=== PATIENT | male | born 1955 | race Caucasian/White ===

== ENCOUNTER 2020-04-30 19:41 | Inpatient (IN) | payer MEDICAID ==
[~2020-04-30] VITALS: Ht 170.2 cm; Wt 90.7 kg
[2020-04-30] MEDS ORDERED: IV NS 0.9% 1,000 ML BAG IV ONE (22:00)
[2020-04-30 22:05] LABS: BASOPHILS % (AUTO) 0.4 % (0.0-2.0); HEMATOCRIT 54 % (39-51); HEMOGLOBIN 17.3 g/dL (13.5-17.5); LYMPHOCYTES # (AUTO) 1.4 /CMM (0.8-4.8); MEAN CORPUSCULAR HGB CONC 32 g/dl (31.0-36.0); MEAN CORPUSCULAR VOLUME 97 fL (80-96); MONOCYTES # (AUTO) 1.1 /CMM (0.1-1.30); MONOCYTES % (AUTO) 9.4 % (2.0-12.0); NEUTROPHILS # (AUTO) 9.3 /CMM (1.8-8.9); NEUTROPHILS % (AUTO) 78.2 % (43.0-81.0); PLATELET COUNT (AUTO) 168 /CMM (150-450); RED BLOOD CELL COUNT(AUTO) 5.56 MIL/uL (4.5-6.0); WHITE BLOOD COUNT (AUTO) 11.8 K/uL (4.3-11.0)
[2020-04-30 23:09] LABS: BILIRUBIN,DIRECT 0.5 mg/dL (0.0-0.2); BILIRUBIN,TOTAL 1.3 mg/dL (0.2-1.0); CREATININE 1.8 mg/dL (0.6-1.3); TOTAL PROTEIN, SERUM 5.8 g/dL (6.4-8.2)
[2020-04-30] MEDS: IV NS 0.9% 1,000 ML BAG IV ONE ×2 (23:10→23:29)
[2020-04-30 23:19] LABS: ALCOHOL, BLOOD < 3 mg/dL (0-0); B-TYPE NATRIURETIC PEPTIDE 10886 PG/ML (0-125)
[2020-04-30 23:20] LABS: ACETAMINOPHEN 0 ug/ml (10-30)
[2020-04-30] MEDS ORDERED: ASPIRIN 325 MG TABLET ONE (23:27)
[2020-04-30] MEDS: ASPIRIN 325 MG TABLET PO SCH (23:29)
[2020-05-01] MEDS ORDERED: FUROSEMIDE 40 MG/4 ML VIAL IV SCH
[2020-05-01] MEDS ORDERED: FUROSEMIDE 40 MG/4 ML VIAL ONE ×3 (00:03→16:59)
[2020-05-01 00:09] LABS: ABG BASE EXCESS -8.9 mmol/L; ABG OXYGEN SATURATION 85.8 % (92.0-98.5); ABG PCO2 27.2 mmHg (35.0-45.0); ABG PH 7.349 (7.350-7.450); ABG PO2 54.9 mmHg (75.0-100.0); AaDO2 62.3 mmHg; COHb 0.7 % (0.5-1.5); MetHb 0.5 % (0.0-1.5); O2Hb 84.8 % (94.0-97.0); SITE, ABG Right Radial; VENT MODE, BG room air
[2020-05-01 00:19] LABS: BILIRUBIN,URINE SMALL (NEGATIVE); COLOR,URINE AMBER (YELLOW); LEUKOCYTE ESTERASE ,URINE Negative (NEGATIVE); NITRITE, URINE Negative (NEGATIVE); PROTEIN,URINE 100 mg/dl (NEGATIVE); UGLUCOSE Negative (NEGATIVE)
[2020-05-01] MEDS ORDERED: MAG HYDROX/AL HYDROX/SIMETH 30 ML UDC PO PRN (01:00)
[2020-05-01] MEDS ORDERED: ONDANSETRON HCL/PF 4 MG/2 ML VIAL IVP PRN (01:00)
[2020-05-01] MEDS ORDERED: HYDROCODONE/APAP 5/325MG TABLET PO PRN (01:00)
[2020-05-01] MEDS ORDERED: ACETAMINOPHEN 325 MG TABLET PO PRN (01:00)
[2020-05-01] MEDS ORDERED: MAGNESIUM HYDROXIDE 30 ML UDC PO PRN (01:00)
[2020-05-01] MEDS ORDERED: Z GUARD REMEDY 2 OZ OINT TP PRN (01:00)
[2020-05-01] MEDS ORDERED: ONDANSETRON HCL/PF - ER 4 MG/2 ML VIAL IV ONE (02:00)
[2020-05-01] MEDS ORDERED: MORPHINE SULFATE INJ 4 MG/ML DISP.SYRIN IV PRN (02:00)
[2020-05-01] MEDS ORDERED: ZOLPIDEM TARTRATE 5 MG TABLET ONE (02:10)
[2020-05-01] MEDS: ZOLPIDEM TARTRATE 5 MG TABLET PO PRN (02:12)
[2020-05-01 02:22] LABS: BACTERIA,URINE None seen /HPF (None Seen); SQUAMOUS EPITHELIAL CELL,UR Few /HPF (None Seen)
[2020-05-01 05:44] LABS: BASOPHILS % (AUTO) 0.3 % (0.0-2.0); EOSINOPHILS % (AUTO) 0.1 % (0.0-6.0); HEMATOCRIT 51 % (39-51); HEMOGLOBIN 16.4 g/dL (13.5-17.5); LYMPHOCYTES # (AUTO) 1.4 /CMM (0.8-4.8); LYMPHOCYTES % (AUTO) 12.6 % (20.0-44.0); MEAN CORPUSCULAR HGB CONC 32 g/dl (31.0-36.0); MEAN CORPUSCULAR VOLUME 96 fL (80-96); MONOCYTES # (AUTO) 1.4 /CMM (0.1-1.30); MONOCYTES % (AUTO) 12.2 % (2.0-12.0); NEUTROPHILS # (AUTO) 8.6 /CMM (1.8-8.9); NEUTROPHILS % (AUTO) 74.8 % (43.0-81.0); PLATELET COUNT (AUTO) 195 /CMM (150-450); RED BLOOD CELL COUNT(AUTO) 5.29 MIL/uL (4.5-6.0); WHITE BLOOD COUNT (AUTO) 11.4 K/uL (4.3-11.0)
[2020-05-01 06:33] LABS: CALCIUM, SERUM 8.6 mg/dL (8.5-10.1); MAGNESIUM 2.4 mg/dL (1.8-2.4); PHOSPHORUS 5.3 mg/dL (2.5-4.9); POTASSIUM 5.2 mmol/L (3.5-5.1)
[2020-05-01] MEDS ORDERED: ASPIRIN 325 MG TABLET ONE (08:25)
[2020-05-01] MEDS: FUROSEMIDE 40 MG/4 ML VIAL IV SCH ×2 (08:43→17:37)
[2020-05-01] MEDS: ASPIRIN 325 MG TABLET PO SCH (08:44)
[2020-05-01] MEDS ORDERED: DEXTROSE 50%-WATER 50 ML DISP.SYRIN IV PRN (12:00)
[2020-05-01] MEDS: BLOOD SUGAR DIAGNOSTIC 1 EACH STRIP IN SCH ×3 (12:10→22:08)
[2020-05-01] MEDS: INSULIN REGULAR, HUMAN 100 UNIT/ML 3 ML VIAL SQ PRN ×3 (12:12→22:30)
[2020-05-01] MEDS ORDERED: INSULIN REGULAR, HUMAN 100 UNIT/ML 10 ML VIAL ONE (22:14)
[2020-05-02] VITALS (7 sets, daily range): BP systolic 104–145; BP diastolic 69–108
[2020-05-02] MEDS: ZOLPIDEM TARTRATE 5 MG TABLET PO PRN ×2 (03:24→21:55)
[2020-05-02] MEDS: BLOOD SUGAR DIAGNOSTIC 1 EACH STRIP IN SCH ×4 (06:47→21:55)
[2020-05-02] MEDS: INSULIN REGULAR, HUMAN 100 UNIT/ML 3 ML VIAL SQ PRN ×3 (06:49→17:23)
[2020-05-02 07:07] LABS: BASOPHILS # (AUTO) 0.1 /CMM (0.0-0.2); BASOPHILS % (AUTO) 0.4 % (0.0-2.0); HEMATOCRIT 50 % (39-51); HEMOGLOBIN 16.5 g/dL (13.5-17.5); LYMPHOCYTES # (AUTO) 1.2 /CMM (0.8-4.8); LYMPHOCYTES % (AUTO) 9.4 % (20.0-44.0); MEAN CORPUSCULAR HGB CONC 33 g/dl (31.0-36.0); MEAN CORPUSCULAR VOLUME 96 fL (80-96); MONOCYTES # (AUTO) 1.2 /CMM (0.1-1.30); MONOCYTES % (AUTO) 9.4 % (2.0-12.0); NEUTROPHILS # (AUTO) 10.1 /CMM (1.8-8.9); NEUTROPHILS % (AUTO) 80.8 % (43.0-81.0); PLATELET COUNT (AUTO) 160 /CMM (150-450); RED BLOOD CELL COUNT(AUTO) 5.27 MIL/uL (4.5-6.0); WHITE BLOOD COUNT (AUTO) 12.5 K/uL (4.3-11.0)
[2020-05-02 07:25] LABS: CALCIUM, SERUM 8.3 mg/dL (8.5-10.1); CREATININE 1.6 mg/dL (0.6-1.3); POTASSIUM 4.1 mmol/L (3.5-5.1)
[2020-05-02] MEDS: ASPIRIN 325 MG TABLET PO SCH (08:41)
[2020-05-02] MEDS ORDERED: BUMETANIDE INJ 4 MG in IV D5W 24 ML IV ONE (15:30)
[2020-05-02 16:04] LABS: BILIRUBIN,DIRECT 0.4 mg/dL (0.0-0.2); BILIRUBIN,TOTAL 0.9 mg/dL (0.2-1.0)
[2020-05-02 20:03] LABS: BILIRUBIN,URINE NEGATIVE (NEGATIVE); COLOR,URINE YELLOW (YELLOW); LEUKOCYTE ESTERASE ,URINE NEGATIVE (NEGATIVE); NITRITE, URINE NEGATIVE (NEGATIVE); PH,URINE 5.5 (5.0-8.0); PROTEIN,URINE 30 mg/dl (NEGATIVE); UGLUCOSE NEGATIVE (NEGATIVE)
[2020-05-02 20:34] LABS: BACTERIA,URINE Few /HPF (None Seen); RBC,URINE 0-2 /HPF (0-2); SQUAMOUS EPITHELIAL CELL,UR None Seen /HPF (None Seen); WBC,URINE 0-2 /HPF (0-3)
[2020-05-02 20:35] LABS: HYALINE CASTS, URINE Rare /LPF (None Seen)
[2020-05-02 20:36] LABS: URINE TOTAL PROTEIN 56.6 mg/dL (0-11.9)
[2020-05-02 21:19] LABS: EOSINOPHIL,URINE None Seen
[2020-05-03 00:45] VITALS: BP 129/90
[2020-05-03 04:30] VITALS: BP 125/94
[2020-05-03] MEDS: BLOOD SUGAR DIAGNOSTIC 1 EACH STRIP IN SCH ×3 (06:51→17:24)
[2020-05-03 08:00] VITALS: BP 127/73
[2020-05-03 08:04] LABS: BASOPHILS # (AUTO) 0.1 /CMM (0.0-0.2); BASOPHILS % (AUTO) 0.5 % (0.0-2.0); EOSINOPHILS % (AUTO) 0.2 % (0.0-6.0); HEMATOCRIT 51 % (39-51); HEMOGLOBIN 16.4 g/dL (13.5-17.5); LYMPHOCYTES % (AUTO) 14.5 % (20.0-44.0); MEAN CORPUSCULAR HGB CONC 32 g/dl (31.0-36.0); MEAN CORPUSCULAR VOLUME 97 fL (80-96); MONOCYTES # (AUTO) 1.6 /CMM (0.1-1.30); MONOCYTES % (AUTO) 11.9 % (2.0-12.0); NEUTROPHILS # (AUTO) 9.8 /CMM (1.8-8.9); NEUTROPHILS % (AUTO) 72.9 % (43.0-81.0); PLATELET COUNT (AUTO) 164 /CMM (150-450); WHITE BLOOD COUNT (AUTO) 13.5 K/uL (4.3-11.0)
[2020-05-03 08:34] LABS: CALCIUM, SERUM 8.7 mg/dL (8.5-10.1); CREATININE 1.4 mg/dL (0.6-1.3); MAGNESIUM 2.3 mg/dL (1.8-2.4); PHOSPHORUS 4.2 mg/dL (2.5-4.9); POTASSIUM 4.1 mmol/L (3.5-5.1)
[2020-05-03] MEDS: ASPIRIN 325 MG TABLET PO SCH (09:00)
[2020-05-03] MEDS ORDERED: IV NS 0.9% 1,000 ML ONE (10:19)
[2020-05-03] MEDS ORDERED: LIDOCAINE HCL/MPF 1% 30 ML VIAL IJ ONE (10:20)
[2020-05-03] MEDS ORDERED: NITROGLYCERIN ICAR 1,000 MCG/10 ML VIAL ICAR ONE (10:20)
[2020-05-03] MEDS ORDERED: IODIXANOL 150 ML IV ONE (10:20)
[2020-05-03] MEDS ORDERED: FENTANYL PF 100MCG/2ML AMPUL ONE (11:14)
[2020-05-03] MEDS ORDERED: MIDAZOLAM HCL 2 MG/2ML VIAL ONE (11:14)
[2020-05-03] MEDS ORDERED: HEPARIN SODIUM, PORCINE 1,000 UNIT/ML VIAL ONE (11:39)
[2020-05-03 16:00] VITALS: BP_SYST 126; BP_SYST 146; BP_DIAS 100; BP_DIAS 76
[2020-05-03] MEDS: INSULIN REGULAR, HUMAN 100 UNIT/ML 3 ML VIAL SQ PRN (17:26)
== END 2020-05-03 22:06 | disposition short-term general hospital (02) | DRG 190 ==
LOC: ER 19:48 → TRANSITION 22:59 → TELE 05-01 22:56 → MED 05-03 11:37
PROVIDERS: ADMIT Nurse Practitioner Acute Care; ATTEND Nurse Practitioner Acute Care
PROC: 4A023N7 Measurement of Cardiac Sampling and Pressure, Left Heart, Percutaneous Approach (ICD-10-PCS; principal; 2020-04-30)
PROC: B211YZZ Fluoroscopy of Multiple Coronary Arteries using Other Contrast (ICD-10-PCS; 2020-04-30)
DX: I21.4 Non-ST elevation (NSTEMI) myocardial infarction (principal); R18.8 Other ascites; E87.2 Acidosis; E87.1 Hypo-osmolality and hyponatremia; J90 Pleural effusion, not elsewhere classified; E87.5 Hyperkalemia; N17.0 Acute kidney failure with tubular necrosis; E66.9 Obesity, unspecified; Z68.32 Body mass index [BMI] 32.0-32.9, adult; D75.89 Other specified diseases of blood and blood-forming organs; E11.65 Type 2 diabetes mellitus with hyperglycemia; E83.39 Other disorders of phosphorus metabolism; E86.0 Dehydration; E88.09 Other disorders of plasma-protein metabolism, not elsewhere classified; F15.90 Other stimulant use, unspecified, uncomplicated; F17.200 Nicotine dependence, unspecified, uncomplicated; I10 Essential (primary) hypertension; I25.10 Atherosclerotic heart disease of native coronary artery without angina pectoris; I31.3 Pericardial effusion (noninflammatory); I42.9 Cardiomyopathy, unspecified; I48.92 Unspecified atrial flutter; J98.11 Atelectasis; K40.20 Bilateral inguinal hernia, without obstruction or gangrene, not specified as recurrent; K57.30 Diverticulosis of large intestine without perforation or abscess without bleeding; K59.00 Constipation, unspecified
CPT/HCPCS: 36415; 36600; 71045-TC; 76705-TC; 76770-TC; 80048-TC; 80061-TC; 80076-TC; 81001; 82010-TC; 82247-TC; 82248-TC; 82570-TC; 82803-TC; 82962-TC; 83605-TC; 83690-TC; 83735-TC; 83880; 84100-TC; 84155-TC; 84300-TC; 84484-TC; 85025-TC; 85730-TC; 87081-TC; 93307-TC; C1753; C1769; C1887; G0378; G0480; G0500; J1644; J1815; J1940; J2250; J2405; J3010; J3490; J7030; J7060; Q9967